=== PATIENT | female | born 2000 | race Caucasian/White ===

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

== ENCOUNTER 2021-05-11 00:01 | Emergency (ER) | payer OTHER ==
[~2021-05-11] VITALS: Ht 152.4 cm; Wt 59.2 kg
[2021-05-11] MEDS ORDERED: NAPROXEN500 MG (00:38)
--- NOTE | 2021-05-11 19:18 | EKG ---
[facility] [address] [facility] [place], [place] [address] Signed Normal sinus rhythm Rightward axis Borderline ECG No previous ECGs available Confirmed by FELICITAS HINES DO ([id number]) on 05/11/2021 7:18:02 PM Electronically Signed By: FELICITAS HINES DO 05/11/211917 PATIENT NAME: SUHAIL YEAGER Electrocardiogram DATE OF : 01 PHYSICIAN: FELICITAS HINES DO REPORT #: [id number] REPORT IS CONFIDENTIAL AND NOT TO BE RELEASED WITHOUT AUTHORIZATION
== END 2021-05-11 06:48 | disposition home or self-care (01) ==
LOC: ED 00:01
DX: F41.9 Anxiety disorder, unspecified (principal); F45.8 Other somatoform disorders; F17.200 Nicotine dependence, unspecified, uncomplicated
CPT/HCPCS: 71045; 80053; 84484; 84703; 85025; 85379; 93005; 93010; 96374; 99284-25; J2060

== ENCOUNTER 2025-01-09 07:46 | Emergency (ER) | payer OTHER ==
[~2025-01-09] VITALS: Ht 152.4 cm; Wt 60.4 kg
[~2025-01-09 07:46] MED LIST: NAPROXEN500 MG
[2025-01-09] MEDS ORDERED: AMOXICILLIN500 MG PO (08:08)
[2025-01-09 08:14] VITALS: BP 100/88
== END 2025-01-09 08:15 | disposition home or self-care (01) ==
LOC: ED 07:46
DX: K06.1 Gingival enlargement (principal); K08.89 Other specified disorders of teeth and supporting structures; F17.200 Nicotine dependence, unspecified, uncomplicated
CPT/HCPCS: 99282

== ENCOUNTER 2025-05-11 23:25 | Emergency (ER) | payer MEDICAID ==
[~2025-05-11] VITALS: Ht 152.4 cm; Wt 60.4 kg
[~2025-05-11 23:25] MED LIST changes: +AMOXICILLIN500 MG PO
--- OUTSIDE RECORDS SUMMARY | 2025-05-11 23:33 | XMS ---
PreManage Notification: SUHAIL YEAGER Security Food Runner Events No recent Security Events currently on file CRITERIA MET - [facility] - 2 Visits in 30 Days [facility]: Federally Qualified [facility]/29/2020-[facility] ([facility]) [facility] PHONE: [phone] [facility], Clinic/Center: [facility] PHONE: Unknown HATTIE BRAR Plastic [employer] [facility] TEAM PHONE: [phone] Javier has no Care Guidelines for this patient. E.D. VISIT COUNT (12 MO.) 2 RAFAEL [facility]er ([place] ) TOTAL 4 NOTE: Visits indicate total known visits. ED/UCC VISIT TRACKING (12 MO.) 05/11/2025 23:27 [facility] [place] TYPE: Emergency COMPLAINT: - POSS ALLERGIC REACTION 05/10/2025 08:49 [facility] [place] ([facility] ) TYPE: Emergency DIAGNOSES: - Acute vaginitis - Cystitis, unspecified without hematuria - Other specified bacterial agents as the cause of diseases classified elsewhere - Syphilis, unspecified - Trichomoniasis, unspecified - shortness of breath - Weakness 03/16/2025 14:38 Corina [facility]er [facility] [place] ([place] ) TYPE: Emergency DIAGNOSES: - Acute pyelonephritis - Fever (9 Weeks To 74 Years) - Headache (Adult - New Onset Or New Symptoms) - Headache;Fever 01/09/2025 07:46 [facility] [place] TYPE: Emergency COMPLAINT: - TOOTH PROBLEM DIAGNOSES: - Gingival enlargement - Nicotine dependence, unspecified, uncomplicated - Other specified disorders of teeth and supporting structures INPATIENT VISIT TRACKING (12 MO.) No inpatient visits to display in this time frame [email or web address]
[2025-05-12] MEDS ORDERED: CEFDINIR300 MG PO (00:05)
[2025-05-12] MEDS ORDERED: METRONIDAZOLE500 MG PO (00:06)
[2025-05-12 00:28] LABS: BASOPHILS 0.4 % (0.1-1.2); EOSINOPHILS 0.4 % (0.7-5.8); LYMPHOCYTES 31.8 % (19.3-51.7); MCH 28.2 PG (25.6-32.2); MCHC 33.2 g/dL (32.2-35.5); MCV 85.0 fL (79.4-94.8); MONOCYTES 8.0 % (4.7-12.5); NEUTROPHILS 59.3 % (34.0-71.1); RBC 4.40 M/uL (3.93-5.22)
[2025-05-12 00:43] LABS: ALT (SGPT) 21.0 U/L (14-59); AST (SGOT) 17.0 U/L (15-37); GLOMERULAR FILTRATION RATE,EST 124.0 mL/min (>60); PROTEIN, TOTAL 7.4 g/dL (6.4-8.2); UREA NITROGEN 13.0 mg/dL (7-18)
[2025-05-12 00:57] LABS: BLOOD/HGB, URINE NEGATIVE (Negative); KETONE, URINE NEGATIVE (Negative); LEUK ESTERASE, URINE NEGATIVE (negative); NITRITE, URINE NEGATIVE (negative)
[2025-05-12] MEDS ORDERED: CYCLOBENZAPRINE10 MG PO (01:31)
[2025-05-12] MEDS ORDERED: CYCLOBENZAPRINE HCL 10 MG HOME.PACK PO ONE (01:45)
[2025-05-12 01:53] VITALS: BP 123/73
== END 2025-05-12 01:50 | disposition home or self-care (01) ==
LOC: ED 23:25
PROVIDERS: Family Medicine
DX: M54.50 Low back pain, unspecified (principal); F17.200 Nicotine dependence, unspecified, uncomplicated; Z79.2 Long term (current) use of antibiotics
CPT/HCPCS: 36415; 80053; 81003; 85025; 99283